=== PATIENT | male | born 1985 | race African-American/Black ===

== ENCOUNTER 2016-09-29 11:05 | Emergency (ER) | payer OTHER, MEDICAID ==
--- NOTE | ~2016-09-29 | CR63 ---
[facility] A Service of [facility] & [facility] RADIOLOGY TEXT RESULTS PATIENT: MAURIZIO WILEY LOCATION: [facility] : [birth year] UNIT #: [id number] AGE: [address]: ALY HOOK SEX: M ORDER DR: [id number] [facility] [address]. [place], [place] [address] [id number] E MR#: [id number] Acc #: [id number] NAME: MAURIZIO WILEY. : 1985 SEX: M STUDY DATE/TIME: 09/29/2016 10:33 UNIT: [facility] ROOM: STUDY DESCRIPTION: CR Chest 2 View Attending Physician: Aly Hook Aprn Ordering Physician: Aly Hook Aprn MEDICAL IMAGING REPORT This report is preliminary unless electronic signature is present EXAM PA and lateral chest INDICATION Chest pain for 1 day. COMPARISON 11/10/2011 FINDINGS Lungs are well expanded and clear. The heart size is normal. The visualized osseous structures are unremarkable. IMPRESSION Negative chest. Dictated by... Stiven Billingsley M.D. THIS IS AN ELECTRONICALLY VERIFIED REPORT Stiven Billingsley M.D. at 09/30/2016 7:52 AM Giovani TD: 09/29/2016 11:46 JOB #: [id number] MEDICAL IMAGING REPORT Page 1 of 1 COPY
--- NOTE | ~2016-09-29 | CR230 ---
[facility] A Service of [facility] & [facility] RADIOLOGY TEXT RESULTS PATIENT: MAURIZIO WILEY LOCATION: [facility] : 87 UNIT #: [id number] AGE: [address]: ALY HOOK SEX: M ORDER DR: [id number] [facility] [address] [place], [place] [address] [id number] E MR#: [id number] Acc #: [id number] NAME: MAURIZIO WILEY. : 1985 SEX: M STUDY DATE/TIME: 09/29/2016 10:34 UNIT: [facility] ROOM: STUDY DESCRIPTION: CR Shoulder Min 2 View Rt Attending Physician: Aly Hook Aprn Ordering Physician: Aly Hook Aprn MEDICAL IMAGING REPORT This report is preliminary unless electronic signature is present EXAM Right shoulder 3 views INDICATION Right shoulder pain for 1 day. COMPARISON No comparisons FINDINGS There is mild elevation of distal clavicle with respect to the acromion. This may represent an AC joint injury. Correlate with location of patient's pain. The glenohumeral joint intact. No fracture. IMPRESSION Mild elevation of the distal clavicle with respect to the acromion may indicate an AC joint injury. Correlate with location of the patient's pain. Dictated by... Stiven Billingsley M.D. THIS IS AN ELECTRONICALLY VERIFIED REPORT Stiven Billingsley M.D. at 09/30/2016 7:52 AM WYATT/rajan TD: 09/29/2016 11:50 JOB #: [id number] MEDICAL IMAGING REPORT Page 1 of 1 COPY
[~2016-09-29 11:05] MED LIST: FLEXERIL10 MG PO; NAPROSYN500 MG PO; ULTRAM PO; VOLTAREN75 MG PO
== END 2016-09-29 11:45 | disposition home or self-care (01) ==
LOC: CFTX 11:05
DX: S20.211A Contusion of right front wall of thorax, initial encounter (principal); S49.91XA Unspecified injury of right shoulder and upper arm, initial encounter; F17.210 Nicotine dependence, cigarettes, uncomplicated; Y04.0XXA Assault by unarmed brawl or fight, initial encounter; Y92.69 Other specified industrial and construction area as the place of occurrence of the external cause; Y99.0 Civilian activity done for income or pay
CPT/HCPCS: 71020; 73030; 99284; J1885

== ENCOUNTER 2016-10-31 02:00 | Emergency (ER) | payer MEDICAID ==
[2016-10-31 02:59] LABS: URINE SOURCE CLEAN CATCH
[2016-10-31 03:22] LABS: URINE APPEARANCE CLEAR; URINE BILIRUBIN NEG (NEG); URINE BLOOD NEG (NEG); URINE COLOR DK YELLOW; URINE GLUCOSE NEG (NEG); URINE KETONE TRACE (NEG); URINE LEUKOCYTE ESTERASE NEG (NEG); URINE NITRATE NEG (NEG); URINE PROTEIN NEG (NEG); URINE SPECIFIC GRAVITY 1.034 (1.003-1.035)
[2016-10-31 03:27] LABS: CULTURE INDICATED? NO
[2016-11-02 23:42] LABS: CHLAMYDIA TRACH Not Detected (Not Detected); N GONOR Not Detected (Not Detected)
== END 2016-10-31 03:53 | disposition home or self-care (01) ==
LOC: CED 02:00
PROVIDERS: Nurse Practitioner
DX: Z20.2 Contact with and (suspected) exposure to infections with a predominantly sexual mode of transmission (principal); F90.9 Attention-deficit hyperactivity disorder, unspecified type; F17.200 Nicotine dependence, unspecified, uncomplicated
CPT/HCPCS: 81003; 87491; 87591; 99283

== ENCOUNTER 2016-12-24 05:40 | Emergency (ER) | payer OTHER ==
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
[2016-12-24] MEDS ORDERED: ADDERALL 10 MG10 M1 PO (05:49)
== END 2016-12-24 07:16 | disposition home or self-care (01) ==
LOC: SED 05:40
DX: S00.83XA Contusion of other part of head, initial encounter (principal); F17.200 Nicotine dependence, unspecified, uncomplicated; Y04.0XXA Assault by unarmed brawl or fight, initial encounter; Y92.69 Other specified industrial and construction area as the place of occurrence of the external cause; Y93.89 Activity, other specified; Y99.0 Civilian activity done for income or pay
CPT/HCPCS: 70486; 99283